=== PATIENT | female | born 1985 | race Hispanic/Latino ===

== ENCOUNTER 2018-04-12 12:36 | Emergency (ER) | payer OTHER ==
--- NOTE | 2018-04-12 15:58 | RAD REPORT ---
EXAM DESCRIPTION: Wilbur Arzate (2 Views)04/12/2018 3:48 pm CLINICAL HISTORY: Cough COMPARISON: None FINDINGS: The lungs appear clear of acute infiltrate. The heart is normal size IMPRESSION: No acute abnormalities displayed
--- NOTE | 2018-04-12 16:02 | ER ---
Nurse's Notes [facility] Name: Jessy Méndez Age: 32 yrs Sex: Female : 1985 Arrival Date: 04/12/2018 Time: 12:37 Bed 15 Private MD: Out, [facility] Diagnosis: Cough;Essential (primary) hypertension;Anxiety disorder, unspecified;Cystitis Presentation: 04/12 13:08 Presenting complaint: Patient states: I feel really anxious and jittery and like I am hb going crazy. Hx hypertension, anxiety. Recently stopped taking her sertraline. Denies SI/HI. Transition of care: patient was not received from another setting of care. Onset of symptoms was April 12, 2018. Risk Assessment: Do you want to hurt yourself or someone else? Patient reports no desire to harm self or others. Initial Sepsis Screen: Does the patient meet any 2 criteria? No. Patient's initial sepsis screen is negative. Does the patient have a suspected source of infection? No. Patient's initial sepsis screen is negative. Care prior to arrival: None. 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 - Social history:: Smoking status: Patient/guardian denies using tobacco. - Ebola Screening: : No symptoms or risks identified at this time. - Family history:: not pertinent. Screenin:42 Abuse screen: Denies threats or abuse. Nutritional screening: No deficits noted. mb3 Tuberculosis screening: No symptoms or risk factors identified. Fall Risk None identified. Assessment: 15:25 General: Appears in no apparent distress. comfortable, Behavior is cooperative, mb3 appropriate for age, crying. Pain: Complains of pain in top of head, right yazidism and left yazidism. Neuro: No deficits noted. Cardiovascular: No deficits noted. Respiratory: No deficits noted. GI: No deficits noted. No signs and/or symptoms were reported involving the gastrointestinal system. : No deficits noted. No signs and/or symptoms were reported regarding the genitourinary system. EENT: No deficits noted. No signs and/or symptoms were reported regarding the EENT system. Derm: No deficits noted. No signs and/or symptoms reported regarding the dermatologic system. Vital Signs: 13:12 BP 129 / 89; Pulse 106; Resp 16; Temp 98; Pulse Ox 100% on R/A; Pain 0/10; hb 15:24 BP 134 / 92; Pulse 106; Resp 16; Pulse Ox 96% on R/A; mb3 ED Course: 12:37 Patient arrived in ED. sb2 12:37 Out, of Town is Private Physician. sb2 13:11 Triage completed. 13:12 Arm band placed on right wrist. 15:16 Lasha Agustin, RN is Primary Nurse. mb3 15:22 Chris Smith MD is Attending Physician. [facility] 15:30 Patient moved to radiology via wheelchair. 15:45 X-ray completed. Patient tolerated procedure well. 15:45 Patient moved back from radiology. 15:46 Chest Pa And Lat (2 Views) XRAY In Process Unspecified. EDMS 16:43 Patient has correct armband on for positive identification. mb3 16:43 No provider procedures requiring assistance completed. Patient did not have IV access mb3 during this emergency room visit. Administered Medications: 16:32 Drug: LevOfloxacin 500 mg Route: PO; mb3 16:40 Follow up: Response: No adverse reaction mb3 Outcome: 16:01 Discharge ordered by . [facility] 16:41 Discharged to home ambulatory. mb3 16:41 Condition: stable 16:41 Discharge instructions given to patient, Instructed on discharge instructions, follow up and referral plans. medication usage, Demonstrated understanding of instructions, follow-up care, medications, Prescriptions given X 2. 16:44 Patient left the ED. mb3 Signatures: Dispatcher [employer] EDMT Chris Smith MD MD cha Warren, Shannon sw Baxter, Heather, VICKI COHEN Ariadna Medeiros [facility] Lasha Agustin, RN RN mb3
--- NOTE | 2018-04-12 16:02 | EDPHYS ---
Physician Documentation [facility] Name: Jessy Méndez Age: 32 yrs Sex: Female : 1985 Arrival Date: 04/12/2018 Time: 12:37 Bed 15 Private MD: Out, [facility] ED Physician Chris Smith HPI: 04/12 15:34 This 32 yrs old Female presents to ER via Ambulatory with complaints of Blood kortney Pressure Problem, Anxiety. 15:34 The patient or guardian reports cough. Onset: The symptoms/episode began/occurred 4 kortney day(s) ago. Severity of symptoms: At their worst the symptoms were mild, in the emergency department the symptoms are unchanged. Modifying factors: The symptoms are alleviated by nothing, the symptoms are aggravated by nothing. Associated signs and symptoms: The patient has no apparent associated signs or symptoms. The patient has not experienced similar symptoms in the past. 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 - Social history:: Smoking status: Patient/guardian denies using tobacco. - Ebola Screening: : No symptoms or risks identified at this time. - Family history:: not pertinent. ROS: 15:34 Constitutional: Negative for fever, chills, and weight loss, Eyes: Negative for injury, kortney pain, redness, and discharge, ENT: Negative for injury, pain, and discharge, Neck: Negative for injury, pain, and swelling, Cardiovascular: Negative for chest pain, palpitations, and edema, Abdomen/GI: Negative for abdominal pain, nausea, vomiting, diarrhea, and constipation, Back: Negative for injury and pain, : Negative for injury, bleeding, discharge, and swelling, MS/Extremity: Negative for injury and deformity, Skin: Negative for injury, rash, and discoloration, Neuro: Negative for headache, weakness, numbness, tingling, and seizure, Psych: Negative for depression, anxiety, suicide ideation, homicidal ideation, and hallucinations, Allergy/Immunology: Negative for hives, rash, and allergies, Endocrine: Negative for neck swelling, polydipsia, polyuria, polyphagia, and marked weight changes, Hematologic/Lymphatic: Negative for swollen nodes, abnormal bleeding, and unusual bruising. 15:34 Respiratory: Positive for cough, with no reported sputum. Exam: 15:34 Constitutional: This is a well developed, well nourished patient who is awake, alert, kortney and in no acute distress. Head/Face: Normocephalic, atraumatic. Eyes: Pupils equal round and reactive to light, extra-ocular motions intact. Lids and lashes normal. Conjunctiva and sclera are non-icteric and not injected. Cornea within normal limits. Periorbital areas with no swelling, redness, or edema. ENT: Nares patent. No nasal discharge, no septal abnormalities noted. Tympanic membranes are normal and external auditory canals are clear. Oropharynx with no redness, swelling, or masses, exudates, or evidence of obstruction, uvula midline. Mucous membranes moist. Neck: Trachea midline, no thyromegaly or masses palpated, and no cervical lymphadenopathy. Supple, full range of motion without nuchal rigidity, or vertebral point tenderness. No Meningismus. Chest/axilla: Normal chest wall appearance and motion. Nontender with no deformity. No lesions are appreciated. Cardiovascular: Regular rate and rhythm with a normal S1 and S2. No gallops, murmurs, or rubs. Normal PMI, no JVD. No pulse deficits. Abdomen/GI: Soft, non-tender, with normal bowel sounds. No distension or tympany. No guarding or rebound. No evidence of tenderness throughout. Back: No spinal tenderness. No costovertebral tenderness. Full range of motion. Female : Normal external genitalia. Skin: Warm, dry with normal turgor. Normal color with no rashes, no lesions, and no evidence of cellulitis. MS/ Extremity: Pulses equal, no cyanosis. Neurovascular intact. Full, normal range of motion. Neuro: Awake and alert, GCS 15, oriented to person, place, time, and situation. Cranial nerves II-XII grossly intact. Motor strength 5/5 in all extremities. Sensory grossly intact. Cerebellar exam normal. Normal gait. Psych: Awake, alert, with orientation to person, place and time. Behavior, mood, and affect are within normal limits. 15:34 Respiratory: the patient does not display signs of respiratory distress, Respirations: no acute changes, Breath sounds: rhonchi, that are mild, are scattered. 15:36 Musculoskeletal/extremity: DVT Exam: No signs of deep vein thrombosis. no pain, no kortney swelling, no tenderness, negative Homans' sign noted on exam, no appreciated bluish discoloration, no erythema, no increased warmth. Vital Signs: 13:12 BP 129 / 89; Pulse 106; Resp 16; Temp 98; Pulse Ox 100% on R/A; Pain 0/10; hb 15:24 BP 134 / 92; Pulse 106; Resp 16; Pulse Ox 96% on R/A; mb3 MDM: 15:22 Patient medically screened. [facility] 15:36 Data reviewed: vital signs, nurses notes, lab test result(s), urinalysis, radiologic [facility] studies. 04/12 16:11 Order name: Urine Microscopic Only [facility] 04/12 16:18 Order name: Urine Culture [facility] 04/12 15:34 Order name: Chest Pa And Lat (2 Views) XRAY; Complete Time: 16:01 [facility] 04/12 16:27 Order name: Urine Dipstick--Ancillary (enter results) 04/12 16:27 Order name: Urine --Ancillary (enter results) 04/12 15:34 Order name: Urine Dipstick-Ancillary (obtain specimen); Complete Time: 16:32 [facility] 04/12 15:34 Order name: Urine Test (obtain specimen); Complete Time: 16:32 [facility] Administered Medications: 16:32 Drug: LevOfloxacin 500 mg Route: PO; [facility] 16:40 Follow up: Response: No adverse reaction 3 Disposition: 04/12/18 16:01 Discharged to Home. Impression: Cough, Essential (primary) hypertension, Anxiety disorder, unspecified, Cystitis. - Condition is Stable. - Discharge Instructions: Panic Attacks, Dysuria, Hypertension, Cool Mist Vaporizer, Hypertension, Frzq-pg-Lbtz, Cough, Adult, Pioy-kp-Yjuq, How to Take Your Blood Pressure, Tvjg-cv-Yyip, Panic Attacks, Wxpk-km-Dobj, Cough, Adult, Managing Your Hypertension. - Prescriptions for Hydroxyzine HCl 25 mg Oral Tablet - take 1 tablet by ORAL route every 6 hours As needed; 30 tablet. Levaquin 500 mg Oral Tablet - take 1 tablet by ORAL route once daily for 6 days; 6 tablet. - Medication Reconciliation Form, Thank You Letter, Antibiotic Education, Prescription Opioid Use form. - Follow up: Private Physician; When: 2 - 3 days; Reason: Recheck today's complaints, Continuance of care, Re-evaluation by your physician. - Problem is new. - Symptoms have improved. Signatures: Dispatcher [employer] EDMI Chris Smith MD MD cha Baxter, Heather, RN RN Lasha Agustin RN RN mb3 Corrections: (The following items were deleted from the chart) 16:19 16:01 04/12/2018 16:01 Discharged to Home. Impression: Cough; Essential (primary) kortney hypertension; Anxiety disorder, unspecified. Condition is Stable. Discharge Instructions: Panic Attacks, Hypertension, Cool Mist Vaporizer, Hypertension, Lcfo-of-Suop, Cough, Adult, Ohnk-wq-Rgmy, How to Take Your Blood Pressure, Qvek-wb-Soxe, Panic Attacks, Cpsd-ws-Xcem, Cough, Adult, Managing Your Hypertension. Prescriptions for Hydroxyzine HCl 25 mg Oral Tablet - take 1 tablet by ORAL route every 6 hours As needed; 30 tablet, Zithromax Z-Andrea 250 mg Oral Tablet - take 1 tablet by ORAL route as directed for 5 days Day 1 - take two (2) tablets one time. Day 2, 3, 4 , 5 take one (1) tablet once daily.; 6 tablet. and Forms are Medication Reconciliation Form, Thank You Letter, Antibiotic Education, Prescription Opioid Use. Follow up: Private Physician; When: 2 - 3 days; Reason: Recheck today's complaints, Continuance of care, Re-evaluation by your physician. Problem is new. Symptoms have improved. [facility] 16:44 16:19 04/12/2018 16:01 Discharged to Home. Impression: Cough; Essential (primary) mb3 hypertension; Anxiety disorder, unspecified; Cystitis. Condition is Stable. Discharge Instructions: Panic Attacks, Hypertension, Cool Mist Vaporizer, Hypertension, Dari-ee-Zyfb, Cough, Adult, Htev-vi-Wchy, How to Take Your Blood Pressure, Mysm-iv-Cgwx, Panic Attacks, Zlws-na-Gyll, Cough, Adult, Managing Your Hypertension. Prescriptions for Hydroxyzine HCl 25 mg Oral Tablet - take 1 tablet by ORAL route every 6 hours As needed; 30 tablet, Zithromax Z-Andrea 250 mg Oral Tablet - take 1 tablet by ORAL route as directed for 5 days Day 1 - take two (2) tablets one time. Day 2, 3, 4 , 5 take one (1) tablet once daily.; 6 tablet. and Forms are Medication Reconciliation Form, Thank You Letter, Antibiotic Education, Prescription Opioid Use. Follow up: Private Physician; When: 2 - 3 days; Reason: Recheck today's complaints, Continuance of care, Re-evaluation by your physician. Problem is new. Symptoms have improved. kortney
[2018-04-12] MEDS ORDERED: levoFLOXacin 500 MG TAB ONE (16:31)
[2018-04-12 16:40] LABS: Urine Bacteria <20 /HPF (<20); Urine Culture Reflex Order NOT NEEDED; Urine RBC <5 /HPF (NONE SEEN)
[2018-04-12 18:18] VITALS: TEMP 98
[2018-04-12 18:19] VITALS: BP 134/92; O2SAT 96
[2018-04-12 19:07] LABS: Urine Blood TRACE (NEG); Urine Glucose NEGATIVE (NEG); Urine Protein NEGATIVE (NEG)
== END 2018-04-12 16:44 | disposition home or self-care (01) ==
LOC: ER 12:36
DX: I10 Essential (primary) hypertension (principal); F41.9 Anxiety disorder, unspecified; R05 Cough; N30.90 Cystitis, unspecified without hematuria
CPT/HCPCS: 71046; 81003; 81015; 81025; 87086; 87088; 99283

== ENCOUNTER 2019-10-04 16:13 | Emergency (ER) | payer OTHER, SELFPAY ==
[2019-10-04] MEDS ORDERED: NA CHLORIDE 0.9% 1,000 ML ONE (16:41)
[2019-10-04] MEDS ORDERED: FENTANYL CITR 100 MCG/2 ML ONE (16:52)
[2019-10-04 16:58] LABS: Basophils % 0.7 % (0-1.3); Hematocrit 38.5 % (36.0-45.0); Lymphocytes % 22.7 % (15.3-44.8); MPV 8.3 fL (7.6-11.3); RBC Red Blood Cell Count 4.54 M/uL (3.86-4.86)
[2019-10-04] MEDS ORDERED: KETOROLAC 30 MG/ML INJ ONE (17:16)
[2019-10-04 17:22] LABS: ALT/SGPT 31 U/L (12-78); AST/SGOT 30 U/L (15-37); Albumin 3.5 g/dL (3.4-5.0); Alkaline Phosphatase 98 U/L (45-117); BUN Blood Urea Nitrogen 12 mg/dL (7-18); Bicarbonate 28 mmol/L (21-32); Bilirubin Direct 0.2 mg/dL (0-0.2); Bilirubin Total 0.4 mg/dL (0.2-1.0); Glucose Level 93 mg/dL (74-106); Lipase 157 U/L (73-393); Protein, Total 7.9 g/dL (6.4-8.2); Sodium Level 139 mmol/L (136-145)
--- NOTE | 2019-10-04 17:22 | RAD REPORT ---
EXAM DESCRIPTION: US - Abdomen Exam Limited - 10/04/2019 5:12 pm CLINICAL HISTORY: ABD PAIN COMPARISON: No comparisons FINDINGS: The gallbladder demonstrates multi stone shadowing cholelithiasis. No pericholecystic flui d or gallbladder wall thickening. The common bile duct is normal measuring 3 mm. The liver demonstrates no findings of intrahepatic biliary dilatation. IMPRESSION: Cholelithiasis.
--- NOTE | 2019-10-04 17:29 | EDPHYS ---
Physician Documentation [facility] Name: Jessy Méndez Age: 34 yrs Sex: Female : 1985 Arrival Date: 10/04/2019 Time: 16:15 Bed 27 Private MD: ED Physician Chris Smith HPI: 10/04 17:31 This 34 yrs old Female presents to ER via Ambulatory with complaints of snw Abdominal Pain, Back Pain. 17:31 The patient presents with abdominal pain in the epigastric area, in the upper abdomen. snw Onset: The symptoms/episode began/occurred suddenly, 1 hour(s) ago, and became persistent. The symptoms radiate to back. Associated signs and symptoms: Pertinent positives: nausea and vomiting. The symptoms are described as stabbing, steady. Severity of pain: At its worst the pain was severe in the emergency department the pain has improved. The patient has not experienced similar symptoms in the past. It is unknown whether or not the patient has recently seen a physician. pt ate a snack cake and experienced severe upper abd pain with radiation to back. 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 - Social history:: Smoking status: Patient/guardian denies using tobacco. - Ebola Screening: : No symptoms or risks identified at this time. ROS: 17:30 Constitutional: Negative for fever, chills, and weight loss, Eyes: Negative for injury, snw pain, redness, and discharge, ENT: Negative for injury, pain, and discharge, Neck: Negative for injury, pain, and swelling, Cardiovascular: Negative for chest pain, palpitations, and edema, Respiratory: Negative for shortness of breath, cough, wheezing, and pleuritic chest pain, Back: Negative for injury and pain, : Negative for injury, bleeding, discharge, and swelling, MS/Extremity: Negative for injury and deformity, Skin: Negative for injury, rash, and discoloration, Neuro: Negative for headache, weakness, numbness, tingling, and seizure. 17:30 Abdomen/GI: Positive for abdominal pain, nausea and vomiting. Exam: 17:29 Constitutional: This is a well developed, well nourished patient who is awake, alert, snw and in no acute distress. Head/Face: Normocephalic, atraumatic. Eyes: Pupils equal round and reactive to light, extra-ocular motions intact. Lids and lashes normal. Conjunctiva and sclera are non-icteric and not injected. Cornea within normal limits. Periorbital areas with no swelling, redness, or edema. ENT: Nares patent. No nasal discharge, no septal abnormalities noted. Tympanic membranes are normal and external auditory canals are clear. Oropharynx with no redness, swelling, or masses, exudates, or evidence of obstruction, uvula midline. Mucous membranes moist. Neck: Trachea midline, no thyromegaly or masses palpated, and no cervical lymphadenopathy. Supple, full range of motion without nuchal rigidity, or vertebral point tenderness. No Meningismus. Chest/axilla: Normal chest wall appearance and motion. Nontender with no deformity. No lesions are appreciated. Cardiovascular: Regular rate and rhythm with a normal S1 and S2. No gallops, murmurs, or rubs. Normal PMI, no JVD. No pulse deficits. Respiratory: Lungs have equal breath sounds bilaterally, clear to auscultation and percussion. No rales, rhonchi or wheezes noted. No increased work of breathing, no retractions or nasal flaring. Back: No spinal tenderness. No costovertebral tenderness. Full range of motion. Skin: Warm, dry with normal turgor. Normal color with no rashes, no lesions, and no evidence of cellulitis. MS/ Extremity: Pulses equal, no cyanosis. Neurovascular intact. Full, normal range of motion. Neuro: Awake and alert, GCS 15, oriented to person, place, time, and situation. Cranial nerves II-XII grossly intact. Motor strength 5/5 in all extremities. Sensory grossly intact. Cerebellar exam normal. Normal gait. Psych: Awake, alert, with orientation to person, place and time. Behavior, mood, and affect are within normal limits. 17:29 Abdomen/GI: Inspection: abdomen appears normal, Bowel sounds: normal, Palpation: moderate abdominal tenderness, in the epigastric area, right upper quadrant and left upper quadrant, radiation to back. Vital Signs: 16:21 BP 149 / 101; Pulse 108; Resp 16; Temp 97.7; Pulse Ox 100% on R/A; Weight 77.11 kg; hb Height 5 ft. 2 in. (157.48 cm); Pain 9/10; 17:37 BP 105 / 69; Pulse 103; Resp 18; Pulse Ox 100% on R/A; mg2 18:26 BP 117 / 76; Pulse 95; Resp 18; Temp 98; Pulse Ox 100% on R/A; mg2 16:21 Body Mass Index 31.09 (77.11 kg, 157.48 cm) hb MDM: 16:31 Patient medically screened. snw 17:30 Data reviewed: vital signs, nurses notes. Data interpreted: Pulse oximetry: on room air snw is 100 %. Interpretation: normal. Counseling: I had a detailed discussion with the patient and/or guardian regarding: the historical points, exam findings, and any diagnostic results supporting the discharge/admit diagnosis, lab results, radiology results, the need for outpatient follow up, to return to the emergency department if symptoms worsen or persist or if there are any questions or concerns that arise at home. Special discussion: Based on the history and exam findings, there is no indication for further emergent testing or inpatient evaluation. I discussed with the patient/guardian the need to see the general surgeon for further evaluation of the symptoms. I discussed with the patient/guardian the need to see the primary care provider for further evaluation of the symptoms. 10/04 16:31 Order name: Basic Metabolic Panel [facility] 10/04 16:31 Order name: CBC with Diff [facility] 10/04 16:31 Order name: Hepatic Function [facility] 10/04 16:31 Order name: Lipase [facility] 10/04 16:31 Order name: Urine Culture [facility] 10/04 16:31 Order name: Urine Microscopic Only; Complete Time: 07:50 sn 10/04 16:31 Order name: US Abdomen Limited; Complete Time: 17:27 sn 10/04 16:31 Order name: Basic Metabolic Panel; Complete Time: 17:27 [facility] 10/04 16:31 Order name: CBC with Automated Diff; Complete Time: 17:16 [facility] 10/04 16:31 Order name: Liver (Hepatic) Function; Complete Time: 17:27 [facility] 10/04 16:31 Order name: Lipase; Complete Time: 17:27 EDMS 10/04 17:23 Order name: Urine Dipstick--Ancillary (enter results); Complete Time: 17:34 bd 10/04 17:23 Order name: Urine --Ancillary (enter results); Complete Time: 17:34 bd 10/04 16:31 Order name: IV Saline Lock; Complete Time: 16:50 snw 10/04 16:31 Order name: Labs collected and sent; Complete Time: 16:50 snw 10/04 16:31 Order name: Urine Test (obtain specimen); Complete Time: 17:25 snw 10/04 16:31 Order name: Urine Dipstick-Ancillary (obtain specimen); Complete Time: 17:25 snw Administered Medications: 17:25 Drug: NS 0.9% 1000 ml Route: IV; Rate: 1 bolus; Site: right antecubital; mg2 18:28 Follow up: Response: No adverse reaction; IV Status: Completed infusion; IV Intake: mg2 1000ml 17:25 Not Given (Patient Refused): fentaNYL (PF) 25 mcg IVP once; RASS on ADMIN: Combtv4, mg2 Very Agttd3, Agttd2, Rstlss1, AlertClm0, Drwsy-1, Lt Sdtn-2, Mod Sdtn-3, Dp Sdtn-4, UnArsble-5 17:26 Drug: TORadol 30 mg Route: IVP; Site: right antecubital; mg2 18:27 Follow up: Response: No adverse reaction; Marked relief of symptoms mg2 Disposition: 10/05 07:14 Co-signature as Attending Physician, Chris Smith MD I agree with the assessment and kortney plan of care. Disposition: 10/04/19 17:28 Discharged to Home. Impression: Cholelithiasis, Upper abdominal pain, unspecified. - Condition is Stable. - Discharge Instructions: Abdominal Pain, Adult, Biliary Colic, Adult, Fat and Cholesterol Restricted Diet, Hypertension, Cholelithiasis, Rehydration, Adult. - Prescriptions for Bentyl 20 mg Oral Tablet - take 1 tablet by ORAL route every 6 hours As needed; 20 tablet. Diclofenac Sodium 75 mg Oral Tablet Sustained Release - take 1 tablet by ORAL route 2 times per day; 30 tablet. promethazine 25 mg Oral Tablet - take 1 tablet by ORAL route every 6 hours As needed; 20 tablet. - Work release form, Medication Reconciliation Form, Thank You Letter, Antibiotic Education, Prescription Opioid Use form. - Follow up: Emergency Department; When: As needed; Reason: Worsening of condition. Follow up: Private Physician; When: As needed; Reason: Recheck today's complaints, Continuance of care, Re-evaluation by your physician. Follow up: Nacho Brunson MD; When: 2 - 3 days; Reason: Recheck today's complaints, Continuance of care. Signatures: Dispatcher [employer] EDChris Rdz MD MD cha Therrien, Shelly, HOSPITAL ACCOUNT LIAISON-C HOSPITAL ACCOUNT LIAISON-Csnw Lisette Garrett, RN RN Davy Pineda RN RN mg2 Corrections: (The following items were deleted from the chart) 10/04 18:28 17:28 10/04/2019 17:28 Discharged to Home. Impression: Cholelithiasis; Upper abdominal mg2 pain, unspecified. Condition is Stable. Forms are Medication Reconciliation Form, Thank You Letter, Antibiotic Education, Prescription Opioid Use. Follow up: Emergency Department; When: As needed; Reason: Worsening of condition. Follow up: Private Physician; When: As needed; Reason: Recheck today's complaints, Continuance of care, Re-evaluation by your physician. Follow up: Dr. Nacho Brunson; When: 2 - 3 days; Reason: Recheck today's complaints, Continuance of care. snw
--- NOTE | 2019-10-04 17:29 | ER ---
Nurse's Notes [facility] Name: Jessy Méndez Age: 34 yrs Sex: Female : 1985 Arrival Date: 10/04/2019 Time: 16:15 Bed 27 Private MD: Diagnosis: Cholelithiasis;Upper abdominal pain, unspecified Presentation: 10/04 16:19 Presenting complaint: Epigastric pain that radiates to back and nausea that started 30 hb mins [employer]. Transition of care: patient was not received from another setting of care. Onset of symptoms was October 04, 2019. Risk Assessment: Do you want to hurt yourself or someone else? Patient reports no desire to harm self or others. Initial Sepsis Screen: Does the patient meet any 2 criteria? HR > 90 bpm. No. Patient's initial sepsis screen is negative. Care prior to arrival: None. 16:19 Method Of Arrival: Ambulatory hb 16:19 Acuity: CLYDE 3 hb 17:36 Initial Sepsis Screen: Does the patient have a suspected source of infection? No. mg2 Patient's initial sepsis screen is negative. 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 - Social history:: Smoking status: Patient/guardian denies using tobacco. - Ebola Screening: : No symptoms or risks identified at this time. Screenin:33 Abuse screen: Denies threats or abuse. Denies injuries from another. Nutritional mg2 screening: No deficits noted. Tuberculosis screening: No symptoms or risk factors identified. Fall Risk IV access (20 points). Assessment: 17:31 General: Appears in no apparent distress. comfortable, Behavior is calm, cooperative. mg2 Pain: Complains of pain in right upper quadrant and epigastric area Pain radiates to back Pain currently is 7 out of 10 on a pain scale. Quality of pain is described as aching, Pain began gradually, Is intermittent. Neuro: Level of Consciousness is awake, alert, obeys commands, Oriented to person, place, time, situation. Cardiovascular: Capillary refill < 3 seconds Patient's skin is warm and dry. Respiratory: Airway is patent Respiratory effort is even, unlabored, Respiratory pattern is regular, symmetrical. GI: Bowel sounds present X 4 quads. Abd is soft and non tender. GI: Reports rectal bleeding. : No signs and/or symptoms were reported regarding the genitourinary system. EENT: No signs and/or symptoms were reported regarding the EENT system. Derm: Skin is intact, is healthy with good turgor, Skin is pink, warm \T\ dry. normal. Musculoskeletal: Circulation, motion, and sensation intact. Capillary refill < 3 seconds. 17:40 Reassessment: patient for dc after completing iv fluid. mg2 18:27 Reassessment: Patient states feeling better. mg2 Vital Signs: 16:21 BP 149 / 101; Pulse 108; Resp 16; Temp 97.7; Pulse Ox 100% on R/A; Weight 77.11 kg; hb Height 5 ft. 2 in. (157.48 cm); Pain 9/10; 17:37 BP 105 / 69; Pulse 103; Resp 18; Pulse Ox 100% on R/A; mg2 18:26 BP 117 / 76; Pulse 95; Resp 18; Temp 98; Pulse Ox 100% on R/A; mg2 16:21 Body Mass Index 31.09 (77.11 kg, 157.48 cm) hb ED Course: 16:15 Patient arrived in ED. as 16:20 Triage completed. hb 16:21 Arm band placed on. hb 16:27 Deanna Thompson FNP-C [facility]. snw 16:27 Chris Smith MD is Attending Physician. snw 16:27 Davy Pineda, VICKI is Primary Nurse. mg2 16:48 Initial lab(s) drawn, by or, sent to lab. Inserted saline lock: 22 gauge in right jp3 antecubital area, using aseptic technique. Blood collected. Patient maintains SpO2 saturation greater than 95% on room air. 16:49 Safety checks: Family/friend present: yes. Bed in low position. Call light in reach. jp3 Side rails up X 1. Side rails up X2. Warm blanket given. Verbal reassurance given. Pulse ox on. NIBP on. 16:50 Basic Metabolic Panel Sent. jp3 16:50 CBC with Diff Sent. jp3 16:50 Lipase Sent. jp3 16:50 Hepatic Function Sent. jp3 17:13 US Abdomen Limited In Process Unspecified. EDMS 17:28 Nacho Brunson MD is Referral Physician. snw 17:36 No provider procedures requiring assistance completed. mg2 18:26 IV discontinued, intact, bleeding controlled, No redness/swelling at site. Pressure mg2 dressing applied. Administered Medications: 17:25 Drug: NS 0.9% 1000 ml Route: IV; Rate: 1 bolus; Site: right antecubital; mg2 18:28 Follow up: Response: No adverse reaction; IV Status: Completed infusion; IV Intake: mg2 1000ml 17:25 Not Given (Patient Refused): fentaNYL (PF) 25 mcg IVP once; RASS on ADMIN: Combtv4, mg2 Very Agttd3, Agttd2, Rstlss1, AlertClm0, Drwsy-1, Lt Sdtn-2, Mod Sdtn-3, Dp Sdtn-4, UnArsble-5 17:26 Drug: TORadol 30 mg Route: IVP; Site: right antecubital; mg2 18:27 Follow up: Response: No adverse reaction; Marked relief of symptoms mg2 Intake: 18:28 IV: 1000ml; Total: 1000ml. mg2 Outcome: 17:28 Discharge ordered by . snw 18:27 Discharged to home ambulatory, with family. mg2 18:27 Condition: stable 18:27 Discharge instructions given to patient, family, Instructed on discharge instructions, follow up and referral plans. medication usage, Demonstrated understanding of instructions, follow-up care, medications, Prescriptions given X 3. 18:28 Patient left the ED. mg2 Signatures: Dispatcher [employer] EDGA Deanna Thompson, KATHRIN RESIDENTIAL PEST CONTROL TECHNICIAN-Radhika Alvarenga as Lisette Garrett, RN RN Davy Pineda RN RN mg2 Roman Kyle jp3
[2019-10-04 17:30] LABS: Urine Blood TRACE (NEG); Urine Glucose NEGATIVE (NEG); Urine Protein NEGATIVE (NEG); Urine pH 6.5 (5.0-7.0)
[2019-10-04 17:55] LABS: Urine Bacteria <20 /HPF (<20); Urine Culture Reflex Order NOT NEEDED; Urine RBC <5 /HPF (NONE SEEN)
[2019-10-04 18:42] VITALS: O2SAT 100
[2019-10-04 18:45] VITALS: BP 117/76; TEMP 98
== END 2019-10-04 18:28 | disposition home or self-care (01) ==
LOC: ER 16:13
DX: K80.20 Calculus of gallbladder without cholecystitis without obstruction (principal); I10 Essential (primary) hypertension
CPT/HCPCS: 36415; 76705; 80048; 80076; 81003; 81015; 81025; 83690; 85025; 87086; 87088; 96361; 96374; 99284; J3010; J7030